=== PATIENT | male | born 1995 | race Two or more races ===

== ENCOUNTER 2018-08-11 15:57 | Emergency (ER) | payer MEDICAID ==
[~2018-08-11] VITALS: Ht 182.9 cm; Wt 141.1 kg
[~2018-08-11 15:57] MED LIST: NKM
[2018-08-11 16:19] VITALS: BP 133/82
[2018-08-11] MEDS ORDERED: Ketorolac 30mg Inj IM ONE (16:30)
[2018-08-11] MEDS ORDERED: Lidocaine 1% Plain 30 ml INJ ONE (16:30)
--- NOTE | 2018-08-11 16:44 | Emergency Room Report ---
History of Present Illness General Chief Complaint: Skin Rash/Abscess Source: Patient Present Illness HPI 23-year-old male patient presents the ER complaining of left big toe pain for the past 2 weeks. Reports he has an ingrown toenail for the past 2 months however has increasing pain in the past 2 days. Reports has become "purple". Denies history of diabetes. Denies fever, chest pain, shortness of breath. Denies history of trauma. Denies other aggravating or relieving factors. Reports that he attempted to cut the nail back when it first appeared and states that he had some resolution of the pain symptoms when he did that. Allergies: Coded Allergies: No Known Allergies (Unverified , 12/07/15) Patient History Past Medical History: see triage record Reviewed Nursing Documentation: PMH: Agreed; PSxH: Agreed Nursing Documentation-PMH Past Medical History: No Stated History Review of Systems All Other Systems: negative except mentioned in HPI Physical Exam Vital Signs Date Time Temp Pulse Resp B/P (MAP) Pulse Ox O2 Delivery O2 Flow Rate FiO2 08/11/18 16:08 98.2 73 17 133/82 99 Room Air Sp02 EP Interpretation: reviewed, normal General Appearance: well appearing, no apparent distress, alert, GCS 15, non- toxic Head: normocephalic, atraumatic Eyes: bilateral eye normal inspection, bilateral eye PERRL ENT: hearing grossly normal, normal pharynx, no angioedema, normal voice, uvula midline, moist mucus membranes Neck: full range of motion Respiratory: lungs clear, normal breath sounds, no rhonchi, no respiratory distress, no accessory muscle use, no wheezing, speaking full sentences Cardiovascular #1: regular rate, rhythm, no edema Cardiovascular #2: 2+ dorsalis pedis (R), 2+ dorsalis pedis (L) Musculoskeletal: back normal, digits/nails normal, gait/station normal, normal range of motion, non-tender Neurologic: alert, oriented x3, responsive, motor strength/tone normal, sensory intact Psychiatric: mood/affect normal Skin: other - obvious ingrown toenail on left big toe, no overlying erythema or edema Medical Decision Making PA Attestation Dr. Rodríguez is my supervising Physician whom patient management has been discussed with. Diagnostic Impression: Primary Impression: Ingrown left big toenail ER Course Pt. presents to the ED c/o toe pain. Ddx considered but are not limited to ingrown toenail, nail avulsion, paronychia , felon, cellulitis, tinea unguinum. Vital signs: are WNL, pt. is afebrile ER COURSE: Physical exam shows: ingrown toenail. Discussed care with Dr. Rodríguez, opened lateral nail fold with adhesive dressing , advised patient on treatment, will not perform wedge-resection at this time. Advised to followup with spareribs trimmer as outpatient, contact information provided. Wound dressed. Followup with spareribs trimmer/PCP in 2-3 days, provided with contact information for spareribs trimmer, contact to schedule appt. Wound check in 2-3 days. ER precautions given. DISCHARGE: Rx provided for Keflex Rx provided for bacitracin Rx provided for Tylenol No. 3. SE drowsiness, do not take prior to drinking, driving, operating heavy machinery. At this time pt is stable for d/c to home. Patient is resting comfortably, in no acute distress, nontoxic appearing, talking without difficulty. Patient to take medications as instructed Will provide with patient care instructions and any necessary prescriptions. Care plan and follow-up instructions provided. Patient instructed to follow-up with primary care provider in 3 - 5 days. Patient questions asked and answered. Patient reports understanding and agreement to treatment plan. ER precautions given. Patient instructed to return to ER immediately for any new or worsening of symptoms including but not limited to increasing SOB, persistent fever, chest pain, intractable vomiting. - Please note that this Emergency Department Report was dictated using [employer] settlement processor technology software, occasionally this can lead to erroneous entry secondary to interpretation by the dictation equipment. Last Vital Signs Date Time Temp Pulse Resp B/P (MAP) Pulse Ox O2 Delivery O2 Flow Rate FiO2 08/11/18 16:19 98.2 82 17 133/82 99 Room Air Disposition: HOME, SELF-CARE Condition: Stable Scripts Bacitracin/Polymyxin B Sulfate (BACITRACIN-POLYMYXIN OINTMENT) 28.35 Gm Oint...g. 1 APPLIC TP BID, #28 GM Prov: Andrew Romero P.A. 08/11/18 Cephalexin* (KEFLEX*) 500 Mg Capsule 500 MG ORAL EVERY 12 HOURS, #14 CAP 0 Refills Prov: Andrew Romero P.A. 08/11/18 Acetaminophen With Codeine (T#3) (TYLENOL #3 TAB*) Y Tab 1 TAB ORAL Q6 PRN for For Pain, #10 TAB Prov: Andrew Romero 08/11/18 Referrals: Nahed RICHARDSON,REFERRING (PCP) Patient Instructions: Ingriza Toenail Additional Instructions: Follow-up with spareribs trimmer, call to schedule appointment follow-up in 2-3 days. Keep clean and dry. Followup with primary care provider in 3 -5 days. Take medications as directed. Medication may cause drowsiness, do not take prior to drinking, driving, operating machinery. Patient questions asked and answered. ER precautions given, patient instructed to return to ER immediately for any new or worsening of symptoms. Andrew Romero Aug 11, 2018 16:44
[2018-08-11] MEDS ORDERED: ACETAMINOPHEN-1 EAC1 ORAL (17:02)
[2018-08-11] MEDS ORDERED: BACITRACIN-P28.35 GM TP (17:02)
[2018-08-11] MEDS ORDERED: CEPHALEXIN500 MG ORAL (17:02)
[2018-08-11 17:14] VITALS: BP 131/75
== END 2018-08-11 17:15 | disposition home or self-care (01) ==
LOC: EMR 16:28
DX: L60.0 Ingrowing nail (principal)
CPT/HCPCS: 96372; 99283; J1885

== ENCOUNTER 2018-10-29 13:41 | Emergency (ER) | payer MEDICAID ==
[~2018-10-29] VITALS: Ht 182.9 cm; Wt 136.1 kg
[~2018-10-29 13:41] MED LIST changes: +ACETAMINOPHEN-1 EAC1 ORAL; +BACITRACIN-P28.35 GM TP; +CEPHALEXIN500 MG ORAL
[2018-10-29] MEDS ORDERED: NKM (13:49)
--- NOTE | 2018-10-29 13:58 | Emergency Room Report ---
History of Present Illness General Chief Complaint: Lower Extremity Injury Source: Patient Present Illness HPI 23-year-old male with history of recurrent inguinal or on toenail here complaining of another episode of ingrown toenail with infection. Denies fever chills, has full sensation and range of motion. Patient did not follow-up with the primary care physician 2 months ago when he was here for the same complaint and mentions that he called the last referral several times and was never able to make an appointment. He works at a [employer] close to [place] all the time. Denies injury, rating the pain 7 out of 10 upon palpation of the infected side, without radiation tingling and numbness. denies chest pain, S OB , palpitation, and all other associated symptoms Allergies: Coded Allergies: No Known Allergies (Unverified , 12/07/15) Patient History Past Medical History: see triage record Past Surgical History: unable to obtain Pertinent Family History: none Immunizations: UTD Reviewed Nursing Documentation: PMH: Agreed; PSxH: Agreed Nursing Documentation-PMH Past Medical History: No Stated History Review of Systems All Other Systems: negative except mentioned in HPI Physical Exam Vital Signs Date Time Temp Pulse Resp B/P (MAP) Pulse Ox O2 Delivery O2 Flow Rate FiO2 10/29/18 13:45 98.4 71 17 133/81 96 Room Air Sp02 EP Interpretation: reviewed, normal General Appearance: normal inspection, well appearing, no apparent distress Head: normocephalic, atraumatic Eyes: bilateral eye normal inspection, bilateral eye PERRL ENT: normal ENT inspection, normal pharynx Neck: normal inspection, full range of motion, supple, thyroid normal Respiratory: normal inspection, lungs clear, no wheezing Cardiovascular #1: normal inspection, regular rate, rhythm, no edema, normal capillary refill Cardiovascular #2: 2+ dorsalis pedis (R), 2+ dorsalis pedis (L) Gastrointestinal: normal inspection, non tender Musculoskeletal: back normal, gait/station normal, swelling - left big toe, ingrown toenail Neurologic: normal inspection, alert, oriented x3 Psychiatric: normal inspection, judgement/insight normal Skin: no rash, well hydrated, other - left big toe ingrown tonail Lymphatic: normal inspection, no adenopathy Medical Decision Making PA Attestation All my diagnosis and treatment plans were reviewed ad discussed with my supervising physician Dr. Middleton Diagnostic Impression: Primary Impression: Ingrown toenail of left foot ER Course 23-year-old male with history of recurrent inguinal or on toenail here complaining of another episode of ingrown toenail with infection. Denies fever chills, has full sensation and range of motion. Patient did not follow-up with the primary care physician 2 months ago when he was here for the same complaint and mentions that he called the last referral several times and was never able to make an appointment. He works at a [employer] close to [place] all the time. Denies injury, rating the pain 7 out of 10 upon palpation of the infected side, without radiation tingling and numbness. denies chest pain, S OB , palpitation, and all other associated symptoms Ddx considered but are not limited to: ingrown toenail infected, cellulitis left toe, gout Vital signs: are WNL, pt. is afebrile H&PE are most consistent with: infected left great toe due to ingrown toenail ORDERS: keflexmanisharoxen ED INTERVENTIONS: wound clean and dressing DISCHARGE: At this time pt. is stable for d/c to home. Will provide printed patient care instructions, and any necessary prescriptions. Care plan and follow up instructions have been discussed with the patient prior to discharge. Last Vital Signs Date Time Temp Pulse Resp B/P (MAP) Pulse Ox O2 Delivery O2 Flow Rate FiO2 10/29/18 13:45 98.4 71 17 133/81 96 Room Air Disposition: HOME, SELF-CARE Condition: Stable Scripts Naproxen* (NAPROXEN*) 500 Mg Tablet 500 MG ORAL TWICE A DAY, #30 TAB Prov: Michelle Alvarenga 10/29/18 Cephalexin* (KEFLEX*) 500 Mg Capsule 500 MG ORAL EVERY 6 HOURS for 7 Days, #28 CAP Prov: Michelle Alvarenga 10/29/18 Patient Instructions: Ingrown Toenail Additional Instructions: wear sandals. see stain maker Michelle Alvarenga Oct 29, 2018 13:58
[2018-10-29] MEDS ORDERED: NAPROXEN500 M2 ORAL (14:00)
[2018-10-29] MEDS ORDERED: CEPHALEXIN500 MG ORAL (14:00)
[2018-10-29 14:11] VITALS: BP 133/81
--- NOTE | 2018-10-29 14:22 | NUR ---
ER DISCHARGE NOTE: Patient is cleared to be discharged per ERMD, pt is aox4, on room air, with stable vital signs. pt was given dc and prescription instructions, pt was able to verbalize understanding, pt is able to ambulate with steady gait. pt took all belongings.
== END 2018-10-29 14:20 | disposition home or self-care (01) ==
LOC: EMR 14:15
DX: L60.0 Ingrowing nail (principal)
CPT/HCPCS: 99282